=== PATIENT | female | born 1995 | race Two or more races ===

== ENCOUNTER 2019-04-30 17:40 | Emergency (ER) | payer OTHER ==
[~2019-04-30] VITALS: Ht 185.4 cm; Wt 111.1 kg
[2019-04-30 17:47] VITALS: BP 143/95
[2019-04-30] MEDS ORDERED: TRIAMCINOLONE 40MG/ML 1ML VIAL IM ONE (20:45)
== END 2019-04-30 21:33 | disposition home or self-care (01) ==
LOC: ER 17:44
DX: L30.9 Dermatitis, unspecified (principal); Z91.040 Latex allergy status
CPT/HCPCS: 73630; 96372; 99283; J3301